=== PATIENT | female | born 1935 | race Caucasian/White ===

== ENCOUNTER 2017-01-08 13:42 | Emergency (ER) | payer MEDICARE, OTHER ==
[~2017-01-08] VITALS: Ht 165.1 cm; Wt 90.7 kg
[~2017-01-08 13:42] MED LIST: AMLO10TA2 PO; ASPI325T4 PO; CYAN1TAB19 PO; PRAV40TA2 PO
[2017-01-08] MEDS ORDERED: OXYMETAZOLINE 0.05% NASAL SPRAY 30ML BOTTLE. NS ONE (14:00)
--- NOTE | 2017-01-08 14:16 | PHYS DOC ---
Past Medical History Past Medical History: CVA, Hypertension Past Surgical History: Hip Replacement, Hysterectomy, Knee Replacement Additional Past Surgical Histo: unknown Alcohol Use: None Drug Use: None Adult General Chief Complaint Chief Complaint: NOSEBLEED HPI HPI Patient is a 81 year old female complaining of nosebleed which began about 9: 00 this morning. She has had problems with nosebleeds in the past but has not for some time now, maybe 10 years. She just can't get it to stop. She does take one full dose aspirin a day. She has had a "mini stroke". She has a CPAP machine that she wears at night, is not humidified. PCP Dr. Kaplan Review of Systems Review of Systems Constitutional: Denies fever or chills [] Eyes: Denies change in visual acuity, redness, or eye pain [] HENT: Denies nasal congestion or sore throat [] Respiratory: Denies cough or shortness of breath [] Cardiovascular: Denies chest pain GI: Denies abdominal pain, nausea, vomiting, bloody stools or diarrhea [] : Denies dysuria or hematuria [] Musculoskeletal: Denies back pain or joint pain [] Integument: Denies rash or skin lesions [] Neurologic: Denies headache, focal weakness or sensory changes [] Current Medications Current Medications Current Medications Medications (Trade) Dose Ordered Sig/Slick Start Time Stop Time Status Last Admin Dose Admin Oxymetazoline HCl (Afrin) 2 spray 1X ONCE 01/08/17 14:00 01/08/17 14:01 DC 01/08/17 14:04 2 SPRAY Allergies Allergies Allergies Coded Allergies Type Severity Reaction Last Updated Verified No Known Drug Allergies 10/02/15 No Physical Exam Physical Exam Constitutional: Well developed, well nourished, no acute distress, non-toxic appearance. Alert, mentating normally. HENT: Normocephalic, atraumatic, bilateral external ears normal, patient has a tissue stuffed up her right nostril which is bloody, this was removed and a nose clamp was placed. Eyes: conjunctiva normal, no discharge. [] Neck: Normal range of motion, no stridor. [] Cardiovascular:Heart rate regular rhythm, no murmur [] Lungs & Thorax: Bilateral breath sounds clear to auscultation [] Skin: Warm, dry, no erythema, no rash. [] Extremities: No tenderness, no cyanosis, no clubbing, ROM intact, no edema. [] Neurologic: Alert and oriented X 3, normal motor function, normal sensory function, no focal deficits noted. [] Current Patient Data Vital Signs Vital Signs Date Time Temp Pulse Resp B/P Pulse Ox O2 Delivery O2 Flow Rate FiO2 01/08/17 13:50 97.9 78 16 176/81 94 Room Air 97.9 EKG EKG [] Radiology/Procedures Radiology/Procedures Procedure: The nose was cleared by patient blowing. Afrin nasal spray was instilled in the right nostril and nose clamp was placed. After Afrin worked for 5 minutes, the nasal clamp was removed and the patient still has bleeding from the right nare. Bleeding was fairly brisk and I am not able to easily visualize the site of bleeding. I elected to place a 5.5 cm rapid Rhino. After soaking in saline, it was placed without difficulty and inflated with about 5 mL of air which the patient tolerated moderately well. She continued to have some oozing and dripping from the left nare but I don't believe she has an active site of bleeding on the left, just having some spill over from her sinuses being full. [] Course & Med Decision Making Course & Med Decision Making Pertinent Labs and Imaging studies reviewed. (See chart for details) Patient is not on a anticoagulant, only aspirin,. 81-year-old female who presents with a right-sided nosebleed, nasal balloon was placed, she will follow up with ENT. [] Dragon Disclaimer Dragon Disclaimer This electronic medical record was generated, in whole or in part, using a voice recognition dictation system. Departure Departure Impression: Primary Impression: Right-sided nosebleed Disposition: 01 HOME, SELF-CARE Condition: IMPROVED Referrals: BERTHA KAPLAN MD (PCP) Patient Instructions: Nosebleed, [id number] Additional Instructions: Leave the nasal balloon in place until you are seen by ENT specialist to get it removed. You may be more comfortable sleeping in a recliner chair. You will continue to have some bleeding from the left side and in the back of your throat because there is blood in the back of your nose and your sinuses. If your bleeding a steady stream, return to emergency. Call on Tuesday for ENT appointment. To be seen Tuesday or Tuesday. Dr. Werner [phone] If you have problems, or are not able to get ENT follow-up, return to emergency. MATT MATUTE MD Jan 08, 2017 14:16
[2017-01-08 14:50] VITALS: BP 173/61
== END 2017-01-08 14:51 | disposition home or self-care (01) ==
LOC: ER 13:42
DX: R04.0 Epistaxis (principal); I10 Essential (primary) hypertension; Z86.73 Personal history of transient ischemic attack (TIA), and cerebral infarction without residual deficits
CPT/HCPCS: 30901; 99284-25

== ENCOUNTER → 2017-02-17 | Outpatient (CLI) | payer MEDICARE, OTHER ==
--- NOTE | 2017-02-17 12:38 | KCIC ---
5 view lumbar spine dated 02/17/2017. No comparison available. CLINICAL INDICATION: Low back pain for 2 weeks. FINDINGS: AP, lateral, bilateral oblique and cone down views of lumbosacral junction obtained. There is grade 1 anterolisthesis of L3 on L4 and L4 on L5. Sagittal alignment is otherwise anatomic. Vertebral body heights are maintained. Moderate to severe disc space narrowing at L3-L4 and L4-L5 with moderate arthrosis lower lumbar apophyseal joints. Mild hypertrophic change of the superior and inferior endplates throughout. No pars defects on the oblique views. IMPRESSION: 1. No acute radiographic abnormality. 2. Moderate lower lumbar spondylosis. 3. Anterolisthesis of L3 on L4 and L4 on L5, likely degenerative. Electronically signed by: Justino Owens MD (02/17/2017 12:35 PM)
== END | disposition home or self-care (01) ==
LOC: KCIC 11:52
PROVIDERS: ATTEND Family Medicine
DX: M54.32 Sciatica, left side (principal); M43.16 Spondylolisthesis, lumbar region; M47.896 Other spondylosis, lumbar region; M48.06 Spinal stenosis, lumbar region
CPT/HCPCS: 72110

== ENCOUNTER → 2017-02-23 | Outpatient (CLI) | payer MEDICARE, OTHER ==
[~2017-02-23] MED LIST changes: -ASPI325T4 PO; +ASPI325T8 PO
--- NOTE | 2017-02-23 14:10 | KCIC ---
EXAM: Lumbar spine MRI without contrast. HISTORY: Lower back pain and sciatica. TECHNIQUE: Multiplanar, multisequence magnetic resonance imaging of the lumbar spine was performed without contrast. COMPARISON: Radiographs dated 02/17/2017. FINDINGS: There is 7 mm grade 1 anterolisthesis of L4 on L5, 4 mm grade 1 anterolisthesis of L3 on L4, 2 mm grade 1 anterolisthesis of L5 on S1,, and 1 mm grade 1 anterolisthesis of L2 on L3. There is degenerative endplate remodeling with disc space narrowing predominantly at L3-L4 and L4-L5. There is disc desiccation at these levels. There are a few vertebral body hemangiomas. No suspicious osseous lesion is seen. The conus terminates at L1-L2. At L1-L2, there is mild right greater than left facet arthropathy. There is no stenosis. At L2-L3, there is a disc bulge and endplate remodeling. There is moderate facet arthropathy. There is hypertrophy of the ligamentum flavum. There is mild left foraminal stenosis. There is mild central canal stenosis. At L3-L4, there is a broad-based posterior central left paracentral disc protrusion with 7 mm left paracentral superior extrusion superimposed on a disc bulge and endplate remodeling. There is severe facet arthropathy. There is hypertrophy of the ligamentum flavum. There is anterolisthesis. There is severe central canal stenosis. At L4-L5, there is a broad-based posterior central disc protrusion superimposed on a disc bulge and endplate line. There is severe facet arthropathy. There is hypertrophy of the ligament flavum. There is anterolisthesis. There is moderate to severe central canal stenosis. At L5-S1, there is a left foraminal to extraforaminal disc protrusion and osteophyte complex. There is mild right and moderate left facet arthropathy. There is abutment of the exiting left L5 nerve root without significant stenosis. IMPRESSION: 1. Multilevel degenerative change throughout the lumbar spine, described in detail above. This results in mild left foraminal and central canal stenosis L2-L3, severe central canal stenosis L3-L4, moderate to severe central canal L4-L5, and abutment of the exiting left L5 nerve root without significant stenosis at L5-S1. 2. Multilevel anterolisthesis, described above. Electronically signed by: Abby Wall MD (02/23/2017 2:07 PM)
== END | disposition home or self-care (01) ==
LOC: KCIC MRI 12:54
PROVIDERS: ATTEND Family Medicine
DX: M47.896 Other spondylosis, lumbar region (principal); M54.41 Lumbago with sciatica, right side; M54.42 Lumbago with sciatica, left side
CPT/HCPCS: 72148

== ENCOUNTER → 2017-03-17 | Outpatient (CLI) | payer MEDICARE, OTHER ==
[~2017-03-17] MED LIST changes: +ASPI-482 PO; +CALC600T4 PO; +IBUP-1060 PO; +IOHEXOL 180 MG/ML 10 ML VIAL. ONE; +methylPREDNISolone ACETATE 40 MG/ML VIAL. ONE; +methylPREDNISolone ACETATE 80 MG/ML VIAL. ONE
--- NOTE | 2017-03-18 02:21 | PAIN ---
DATE OF SERVICE: 03/17/2017 INITIAL CONSULTATION CHIEF COMPLAINT: Low back and bilateral lower extremity pain, right greater than left. HISTORY OF PRESENT ILLNESS: This is an 81-year-old female who presents with history of pain in the low back and bilateral lower extremities for about 2 months. 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 The patient reports that the pain began to increase at that time in her low back and bilateral lower extremities. It is not with any significant weakness but with some fatigability in the legs, more on the right side than the left, with significant pain bilaterally. The patient reports that it has gotten worse since that time. She has tried some stretching and strengthening exercises on her own, not any form of physical therapies or other treatments, but has had some stretching exercises done by herself. The patient reports it is not helping. The pain is getting worse, it is a sharp, stabbing, and shooting pain, intermittent in intensity but always present. It is again worse in the right lower extremity, mostly across the low back into the posterior gluteus, posterior hips, posterior thighs and calves. It is worse on the right with activity, standing, walking, better with sitting or lying down. It is not awakening her from sleep at night. She feels best when she is lying down supine. It does not affect her bowel or bladder control using a walker or a cane, although she has a cane with her today, using it in her left hand. The patient reports she is taking ibuprofen 800 mg, it does help by about 50% without any side effects or stomach upset. The patient reports no loss of motor function, but again significant fatigability in the lower extremities, especially on the right side. The patient reports disability rating from 0 to 10, 10 being the worst, is a 7 with family and home responsibilities, 6 with recreation, 2 with social activity, 0 with self-care and life support activities. The patient did have MRI scan of the lumbar spine, showing multilevel degenerative changes throughout the lumbar spine with the left foraminal and central canal stenosis at L2-L3, severe central canal stenosis at L3-L4, [id number] canal stenosis at L4-L5 and abutment of the exiting left L5 nerve root without significant stenosis at L5-S1. PAST MEDICAL HISTORY: Significant for hypertension, sleep apnea, arthritis, shingles. PAST SURGICAL HISTORY: Previous surgeries include tonsillectomy, hysterectomy, left total knee replacement, right total knee replacement, and left total hip replacement. CURRENT MEDICATIONS: Include ibuprofen, amlodipine, pravastatin, calcium and daily baby aspirin. ALLERGIES: The patient has no known drug allergies. FAMILY HISTORY: Significant for no major medical problems or conditions that she is aware of besides heart disease. SOCIAL HISTORY: The patient does not smoke, does not drink alcohol. 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 ALLERGIES: The patient has no known drug allergies. REVIEW OF SYSTEMS: The patient's review of systems is positive for those items mentioned in the history of present illness. All systems are reviewed and otherwise negative. It is complete, full and well documented on the patient's chart. PHYSICAL EXAMINATION: VITAL SIGNS: Today, the patient's blood pressure is 175/83, pulse is 71, respirations 18, temperature 98.2 degrees Fahrenheit. Height is 5 feet 6 inches and weight is 226 pounds. GENERAL: The patient is awake, alert, oriented, appropriate, very pleasant demeanor. HEENT: Shows normocephalic and atraumatic. Extraocular movements are intact and symmetrical. Oral cavity shows mucous membranes moist and pink. Dentition is intact. NECK: Shows anterior throat supple without palpable lymphadenopathy noted. Swallow reflex is symmetrical. CHEST: Shows normal on inspection. Breath sounds are clear to auscultation bilaterally. HEART: Shows S1 and S2 clear. ABDOMEN: Soft, obese, nontender, nondistended. No palpable organomegaly. No rebound or guarding demonstrated. BACK: Shows spine grossly in the midline. Slight exaggeration of thoracic kyphosis. Some mild flattening of the lumbar lordotic curvature. Lumbar paraspinous musculature shows some moderate tenderness with palpation bilaterally in the upper, middle and lower distribution, but symmetrical on inspection. No tenderness over the sacrum or sacroiliac regions or over the spinous processes with palpation in the musculature, is normal on muscle girth, but with some moderate tenderness to palpation mostly in the lower lumbar distribution only and diffusely without radiation. Good rotational motion is demonstrated both laterally greater than 10 degrees right and left as well as extension greater than 10 degrees, forward flexion to 45 degrees without significant pain reported. EXTREMITIES: Lower extremities show deep tendon reflexes at 1+ in the patellar and tendo calcaneus tendons. Motor exam is strong with 5/5 dorsiflexion, extension, quadriceps and hamstring flexion and equal. Peripheral pulses are 1+ posterior tibial and dorsalis pedis pulses. No peripheral edema is noted. No clubbing. No cyanosis. Lower extremities are warm and dry to touch, equal in color and appearance. Straight leg raise noted to be negative for reproduction of any radicular symptoms bilaterally. Gaenslen's and Sylvain's maneuvers are mildly tender on the right side with Sylvain's maneuver on external rotation of the hips, but nontender on the left. Again, the patient has had hip replacement on the left side. The patient is able to stand, stand on her toes without significant difficulty or loss of balance, has a slight forward-leaning gait, slightly shuffling, again using a cane in her left hand to help ambulate. IMPRESSION: 1. This is an 81-year-old female with approximately 2-month history of increasing pain in the low back and bilateral lower extremities, worse on the right than the left with radicular pain on the right side more significant. 2. MRI scan of the lumbar spine as noted. 3. Hypertension. 4. Arthritis. 5. Sleep apnea. PLAN: Options were discussed with the patient including conservative medical management, physical therapy, interventional techniques and she would like to pursue interventional techniques. We discussed a lumbar epidural steroid injection using description as well as anatomical models to describe the procedure. Risks were then discussed including but not limited to bleeding, infection, possibility of epidural hematoma, subsequent neurologic compromise, dural puncture, headaches, spinal cord and/or nerve damage, side effects of steroid medication and poor results regarding pain control. The patient understands and wishes to proceed. The patient will return to the clinic in approximately 2 weeks for followup. She was counseled as to return appointment, activity level and side effects to be aware of. DIAGNOSES: Lumbar radiculopathy with lumbar degenerative disk disease, lumbar spinal stenosis. PROCEDURE: Lumbar epidural steroid injection in translaminar approach at the L4-L5 level using C-arm fluoroscopic guidance under sterile prep and drape using local anesthetic. MEDICATION INJECTED: Depo-Medrol 120 mg plus 10 mL of preservative-free normal saline and 2 mL of Isovue for contrast. CONDITION AT DISCHARGE: Stable. The patient tolerated the procedure well, had no complications. MOE WILHELM MD DR: GABRIELLA/marcial JOB#: [id number] / [id number]
== END | disposition home or self-care (01) ==
LOC: PNCL 11:00
PROVIDERS: ATTEND Anesthesiology
DX: M51.16 Intervertebral disc disorders with radiculopathy, lumbar region (principal); M48.06 Spinal stenosis, lumbar region; M19.90 Unspecified osteoarthritis, unspecified site; I10 Essential (primary) hypertension; E78.00 Pure hypercholesterolemia, unspecified; Z90.710 Acquired absence of both cervix and uterus; Z96.653 Presence of artificial knee joint, bilateral; Z96.642 Presence of left artificial hip joint; Z82.49 Family history of ischemic heart disease and other diseases of the circulatory system
CPT/HCPCS: 62323; J1030; J1040

== ENCOUNTER → 2017-04-01 | Outpatient (CLI) | payer MEDICARE, OTHER ==
[~2017-04-01] MED LIST changes: -IOHEXOL 180 MG/ML 10 ML VIAL. ONE; +IOHEXOL 180 MG/ML 20ML VIAL. ONE
== END | disposition home or self-care (01) ==
LOC: PNCL 09:12
PROVIDERS: ATTEND Anesthesiology
DX: M51.16 Intervertebral disc disorders with radiculopathy, lumbar region (principal); M48.06 Spinal stenosis, lumbar region; E78.00 Pure hypercholesterolemia, unspecified; I10 Essential (primary) hypertension; Z87.39 Personal history of other diseases of the musculoskeletal system and connective tissue; Z96.653 Presence of artificial knee joint, bilateral; Z96.642 Presence of left artificial hip joint; Z82.49 Family history of ischemic heart disease and other diseases of the circulatory system
CPT/HCPCS: 62323; J1030; J1040

== ENCOUNTER → 2017-05-19 | Outpatient (CLI) | payer MEDICARE, OTHER ==
[~2017-05-19] MED LIST changes: +IOHEXOL 180 MG/ML 10 ML VIAL. ONE; -IOHEXOL 180 MG/ML 20ML VIAL. ONE
--- NOTE | 2017-05-19 21:04 | PAIN ---
DATE OF SERVICE: 05/19/2017 DIAGNOSES: Lumbar radiculopathy with lumbar spinal stenosis and lumbar degenerative disk disease. HISTORY OF PRESENT ILLNESS: The patient is an 81-year-old female who returns for followup status post lumbar epidural steroid injections x 2. The patient reports about 50% improvement overall, not as significant as after the first injection, which was about 90%, but she is doing better overall. The patient reports still significant pain in the low back and bilateral lower extremities, right equal to left. Essentially, the patient reports the pain is at 9 on a scale of 10 at its worst and 5 at its least. It is currently at an 8 on a scale of 10. The patient reports it stabbing, constant, shooting and sharp in the low back radiating to the posterior gluteus, posterior thighs, posterior calves, worse with activity. The patient reports she has been increasing her activity at home and on her forearms, still lifting 50-pound bags of seed and other items and staying very active, which has been increasing the pain significantly. The patient reports it does not awaken her from sleep at night, though she feels better with lying down or sitting, mostly when she is on her feet, bending, stooping and walking. The patient reports she has some balance issues, and she is quite frustrated with her level of activity as she has had to decrease it secondary to the pain. The patient reports no new motor or sensory deficits, no new bowel or bladder incontinence or other complaints. PHYSICAL EXAMINATION: VITAL SIGNS: The patient's blood pressure is 156/60, pulse 63, respirations 16, temperature is 98.4 degrees Fahrenheit. Weight is 223 pounds. GENERAL: The patient is awake, alert, oriented, appropriate, very pleasant demeanor. HEENT: Exam shows normocephalic and atraumatic. Extraocular movements are intact and symmetrical. Oral cavity, mucous membranes are moist and pink. Dentition is intact. NECK: Shows anterior throat supple without palpable lymphadenopathy noted. Swallow reflex is symmetrical. ABDOMEN: Soft, nontender, nondistended. BACK: Shows spine grossly in the midline. Slight exaggeration of thoracic kyphosis and some mild flattening of lumbar lordotic curvature. Lumbar paraspinous muscles show some moderate tenderness with palpation throughout the upper, middle and lower distribution but only diffusely without radiation. EXTREMITIES: The patient's lower extremities show deep tendon reflexes at 1+ in the patellar and tendo calcaneus tendons that are equal. Motor exam is strong with 5/5 dorsiflexion and extension and equal. Peripheral pulses are 1+ bilaterally. No edema is noted bilaterally as well. PLAN: Options were discussed with the patient and the patient's daughter who accompanies her to visit today, and we will proceed with a third in the series of lumbar epidural steroid injections today with fluoroscopic guidance. Risks were again discussed including but not limited to bleeding, infection, possibility of epidural hematoma and subsequent neurologic compromise, dural puncture, headaches, spinal cord and/or nerve damage, side effects of steroid medication and poor results regarding pain control. The patient understands and wishes to proceed. The patient will return to clinic in approximately 2 weeks for followup. She was counseled on return appointment and activity and side effects to be aware of. DIAGNOSIS: Lumbar radiculopathy with lumbar degenerative disk disease and lumbar spinal stenosis. PROCEDURE: Lumbar epidural steroid injection in translaminar approach at the L4-L5 level using C-arm fluoroscopic guidance under sterile prep and drape using local anesthetic. MEDICATION INJECTED: A total of 120 mg of Depo-Medrol plus 10 mL of preservative-free normal saline and 2 mL of Isovue for contrast. CONDITION AT DISCHARGE: Stable. The patient tolerated the procedure well and had no complications. MOE WILHELM MD DR: GABRIELLA/marcial JOB#: [id number] / [id number]
== END | disposition home or self-care (01) ==
LOC: PNCL 10:10
PROVIDERS: ATTEND Anesthesiology
DX: M51.16 Intervertebral disc disorders with radiculopathy, lumbar region (principal); M48.06 Spinal stenosis, lumbar region; E78.00 Pure hypercholesterolemia, unspecified; I10 Essential (primary) hypertension; Z87.39 Personal history of other diseases of the musculoskeletal system and connective tissue; Z96.653 Presence of artificial knee joint, bilateral; Z82.49 Family history of ischemic heart disease and other diseases of the circulatory system
CPT/HCPCS: 62323; J1030; J1040

== ENCOUNTER → 2017-06-24 | Outpatient (CLI) | payer MEDICARE, OTHER ==
[~2017-06-24] MED LIST changes: -IOHEXOL 180 MG/ML 10 ML VIAL. ONE; -methylPREDNISolone ACETATE 40 MG/ML VIAL. ONE; -methylPREDNISolone ACETATE 80 MG/ML VIAL. ONE
--- NOTE | 2017-06-24 13:47 | KCIC ---
Carotid Doppler ultrasound INDICATION: Bruit on the left.. COMPARISON: November 12, 2015. TECHNIQUE: Color, grayscale and doppler ultrasound images obtained of the carotid system bilaterally. Percent stenosis is estimated using criteria that correlates with NASCET methodology. FINDINGS: Peak systolic velocities are as follows in cm/s: Right Carotid System: Right ICA peak systolic velocity is 133, with end-diastolic velocity of 31. CCA peak systolic velocity is 93. ECA peak systolic velocity is 150. ICA/CCA ratio is 1.44. The right vertebral artery is patent with normal direction of flow. There is mild generalized atherosclerotic plaque. Left carotid system: Left CCA peak systolic velocity is 93. ICA peak systolic velocity is 103 and end-diastolic velocity 28. ECA peak systolic velocity is 264. ICA/CCA ratio is 1.1. Moderate plaque identified at the left external carotid artery with mild plaque elsewhere. Left vertebral artery is patent with normal direction of flow. IMPRESSION: 1. Slightly increased peak systolic velocity of the right internal carotid artery suggests a 50-69 percent moderate stenosis. The ICA/CCA ratio and end-diastolic velocity on the right is not elevated. 2. Elevation of left ECA peak systolic velocity, suggesting greater than 70 percent stenosis. Moderate right ECA stenosis is also suggested. Electronically signed by: Justino Ribeiro MD (06/24/2017 1:43 PM) [facility]
== END | disposition home or self-care (01) ==
LOC: KCIC US 12:23
PROVIDERS: ATTEND Family Medicine
DX: R09.89 Other specified symptoms and signs involving the circulatory and respiratory systems (principal)
CPT/HCPCS: 93880

== ENCOUNTER → 2018-03-15 | Outpatient (CLI) | payer MEDICARE, OTHER | END | disposition home or self-care (01) | LOC: KCIC MRI 15:50 | DX: M19.011 Primary osteoarthritis, right shoulder (principal); M75.111 Incomplete rotator cuff tear or rupture of right shoulder, not specified as traumatic; M25.411 Effusion, right shoulder; M94.211 Chondromalacia, right shoulder | CPT/HCPCS: 73221 ==

== ENCOUNTER → 2018-03-31 | Outpatient (CLI) | payer MEDICARE, OTHER | END | disposition home or self-care (01) | LOC: KCIC US 07:53 | DX: Z01.818 Encounter for other preprocedural examination (principal); I65.23 Occlusion and stenosis of bilateral carotid arteries; E78.00 Pure hypercholesterolemia, unspecified; E78.5 Hyperlipidemia, unspecified; K21.9 Gastro-esophageal reflux disease without esophagitis | CPT/HCPCS: 93880 ==

== ENCOUNTER → 2018-04-13 | Outpatient (CLI) | payer MEDICARE, OTHER ==
[2018-04-13] MEDS: REGADENOSON 0.4 MG/5 ML DISP.SYRIN. IV (11:00)
== END | disposition home or self-care (01) ==
LOC: NM 08:30
DX: Z01.818 Encounter for other preprocedural examination (principal); I10 Essential (primary) hypertension; E78.5 Hyperlipidemia, unspecified; E66.9 Obesity, unspecified; K21.9 Gastro-esophageal reflux disease without esophagitis
CPT/HCPCS: 78452; 93017; 93306; 96374; 96375; 96376; A9500; J2785

== ENCOUNTER → 2018-12-21 | Outpatient (CLI) | payer MEDICARE, OTHER ==
[2018-09-18 10:15] VITALS: BP 174/79
[~2018-12-21] MED LIST changes: -AMLO10TA2 PO; +AMLO10TA8 PO; +METO-239 PO; +MIRA50TA PO; +MULT1TAB52 PO; +OMEP20TA8 PO; +SULF1TAB24 PO
--- NOTE | 2018-12-21 13:42 | KCIC ---
EXAMINATION: Magnetic resonance imaging (MRI) of the lumbar spine without contrast 12/21/2018 12:30 PM HISTORY: Low back pain. TECHNIQUE: Multiplanar multi-weighted MRI of the lumbar spine was performed without intravenous contrast using the standard lumbar spine protocol. Contrast information: None administered. COMPARISON: None available. FINDINGS: There is grade 1 anterolisthesis of L3 on L4 and L4 on L5. There is moderate disc height loss at L3-L4 and L4-L5 with disc desiccation and vacuum disc phenomena. No definite spondylolysis is identified. Vertebral body heights are maintained. Marrow signal intensity is normal in all sequences with exception of an osseous hemangioma at L2. Conus medullaris terminates at L2. Distal spinal cord signal intensity is normal on all sequences. Abdominal aorta is normal in caliber. No suspicious intraperitoneal abnormality is identified. L1-L2: Mild disc bulge. Mild facet arthropathy. There is no neuroforaminal or spinal canal stenosis. L2-L3: There is mild disc bulge asymmetric to the left. Is moderate facet arthropathy with ligamentum flavum infolding. There is mild left neuroforaminal stenosis. Mild spinal canal stenosis. L3-L4: There is moderate disc bulge. There is a left central disc extrusion extending superiorly to the infra pedicle level of L3. There is severe facet arthropathy ligamentum flavum infolding. There is moderate bilateral neuroforaminal stenosis. There is moderate to severe spinal canal stenosis. There is left lateral recess stenosis. L4-L5: There is a moderate disc bulge. There is severe facet arthropathy ligamentum flavum infolding. There is moderate right and mild to moderate left neuroforaminal stenosis. There is moderate spinal canal stenosis. There is right lateral recess stenosis. L5-S1: There is a mild disc bulge. There is severe facet arthropathy. There is no significant neuroforaminal or spinal canal stenosis. IMPRESSION: Moderate to advanced degenerative changes of the lumbar spine, most prominent at L3-L4 and L4-L5 as described in detail above. Electronically signed by: Dayanna Peterson MD (12/21/2018 1:39 PM) [id number]
== END | disposition home or self-care (01) ==
LOC: KCIC MRI 12:14
PROVIDERS: ATTEND Family Medicine
DX: M47.896 Other spondylosis, lumbar region (principal); M48.061 Spinal stenosis, lumbar region without neurogenic claudication; M12.88 Other specific arthropathies, not elsewhere classified, other specified site; D18.09 Hemangioma of other sites; R29.890 Loss of height
CPT/HCPCS: 72148

== ENCOUNTER → 2019-01-12 | Outpatient (CLI) | payer MEDICARE, OTHER ==
[2018-09-18 10:15] VITALS: BP 174/79
--- NOTE | 2019-01-12 12:01 | KCIC ---
CT HEAD WO CONTRAST History: Hypertensive encephalopathy, confusion, aphasia Comparison: March 24, 2018 Technique: Noncontrast CT imaging was performed of the head. Exposure: One or more of the following individualized dose reduction techniques were utilized for this examination: 1. Automated exposure control 2. Adjustment of the mA and/or kV according to patient size 3. Use of iterative reconstruction technique. Findings: Ventricular size is stable, within normal limits. There is no new intra-axial mass effect or midline shift. There is no evidence of acute intracranial hemorrhage. There is again scattered ill-defined low-density of the supratentorial parenchyma bilaterally not convincingly changed. There are again foci of nonspecific extra-axial calcification in the left frontal and parietal region as seen previously. Impression: 1. There is no evidence of acute intracranial hemorrhage. There is again multifocal scattered ill-defined low-density of the supratentorial parenchyma bilaterally, nonspecific findings probably due to chronic ischemic disease in a patient this age and given history of hypertension. Electronically signed by: Ari Kim MD (01/12/2019 11:59 AM) [email or web address]
== END | disposition home or self-care (01) ==
LOC: KCIC CT 10:19
PROVIDERS: ATTEND Family Medicine
DX: I67.4 Hypertensive encephalopathy (principal); I10 Essential (primary) hypertension
CPT/HCPCS: 70450

== ENCOUNTER → 2019-01-16 | Outpatient (CLI) | payer MEDICARE, OTHER ==
[2018-09-18 10:15] VITALS: BP 174/79
--- NOTE | 2019-01-16 16:14 | KCIC ---
3 views of the lumbar spine compared to similar study dated December 21, 2018 for spondylolisthesis, chronic low back pain worse on the right side, no known injury. FINDINGS: In the neutral position, there is grade 1 anterolisthesis of L3 on L4 and grade 1 anterolisthesis of L4-L5, with severe narrowing of intervertebral disc spaces at these levels resulting in vacuum phenomenon. Moderate narrowing at L5-S1. Facet arthrosis at all lower lumbar levels. With flexion and extension, there is no significant change in alignment. IMPRESSION: 1. Degenerative changes lumbar spine as described with grade 1 anterolisthesis of L3 on L4 and L4 on L5. Findings are stable with flexion and extension. Electronically signed by: Khris Turner MD (01/16/2019 4:11 PM) [id number]
== END | disposition home or self-care (01) ==
LOC: KCIC 11:55
PROVIDERS: ATTEND Neurological Surgery
DX: M47.816 Spondylosis without myelopathy or radiculopathy, lumbar region (principal); M48.07 Spinal stenosis, lumbosacral region; M43.16 Spondylolisthesis, lumbar region; M12.88 Other specific arthropathies, not elsewhere classified, other specified site
CPT/HCPCS: 72100

== ENCOUNTER → 2019-01-24 | Outpatient (CLI) | payer MEDICARE, OTHER ==
[2018-09-18 10:15] VITALS: BP 174/79
--- NOTE | 2019-01-25 02:19 | PAIN ---
DATE OF SERVICE: 01/24/2019 PROGRESS NOTE FOR PAIN CLINIC DIAGNOSES: Lumbar radiculopathy with lumbar degenerative disk disease, spinal stenosis and spondylosis. HISTORY OF PRESENT ILLNESS: The patient is an 83-year-old female who returns for followup. Last seen in April 2017. The patient had lumbar epidural steroid injections x 2 with about 90% improvement, but only for a few weeks. The pain returned in the low back and the left lower extremity. The patient has recently seen her neurosurgeon, Dr. Emil Weems who is not recommending any surgery at this time and is recommending conservative treatments. The patient reports the pain is in the low back, across the low back bilaterally and into the left posterior gluteus, posterior thigh, posterior calf with burning, stinging, tingling, sharp pain, stabbing and shooting as well in the left leg, but not the right. The patient reports it is worse with walking, standing, changing positions. The patient reports pain is a 7-8 on a scale of 10 at its worst, 7 on average, 5 at its least and is a 7 today. The patient reports it awakens her from sleep very rarely. She generally does much better with sitting or lying down. The main pain is when she is walking and standing, changing positions. The patient reports no loss of function of bowel or bladder incontinence. The patient did have a recent MRI scan, which was reviewed with her and her daughter. PHYSICAL EXAMINATION: VITAL SIGNS: Today, the patient's blood pressure is 116/56, pulse 60, respirations 18, temperature is 98.3 degrees Fahrenheit. Height is 5 feet 6 inches, weight is 220 pounds. GENERAL: The patient is awake, alert, oriented, appropriate, very pleasant demeanor. HEENT: Head shows normocephalic, atraumatic. Extraocular movements intact and symmetrical. Oral cavity, mucous membranes moist and pink. Dentition is intact. NECK: Shows anterior throat supple without palpable lymphadenopathy noted. Swallow reflex symmetrical. CHEST: Shows normal on inspection. Breath sounds clear to auscultation bilaterally. HEART: Shows S1, S2 clear. No murmurs auscultated. ABDOMEN: Soft, nontender, nondistended. No palpable organomegaly is noted. No rebound or guarding demonstrated. BACK: Shows spine grossly in the midline. Normal appearing thoracic kyphosis, slight flattening of the lumbar lordotic curvature. Lumbar paraspinous muscle shows symmetrical on inspection, on palpation shows some moderate tenderness diffusely without significant atrophy, hypertrophy or radiation of pain. EXTREMITIES: The patient's lower extremities show deep tendon reflexes at 1+ patellar and tendo calcaneus tendons are equal. Motor exam is strong with 5/5 dorsiflexion and extension, quadriceps and hamstring flexion symmetrical. Peripheral pulses are 1+ posterior tibial. No peripheral edema is noted. The patient is able to stand, stand on her toes without difficulty or loss of balance. Walks with a slight shuffling gait. Does not appear to favor the left lower extremity significantly and not using any assistive devices for short distance in the office today. IMPRESSION: 1. This is an 83-year-old female with increasing pain over the past 2 years, low back and left lower extremity in a radicular fashion. 2. MRI scan of lumbar spine showed degenerative changes with grade 1 anterolisthesis of L3 on L4 and L4 on L5, stable with flexion and extension, moderate disk bulge at L4-L5 with moderate right and mild to moderate left neural foraminal stenosis, moderate advanced degenerative change of the lumbar spine, most prominent at L3-L4, L4-L5. PLAN: Options were discussed with the patient and the patient's daughter who accompanied her to her visit today. We will preauthorize the patient for a temporary spinal cord stimulator trial, also with a psychiatric evaluation pending and insurance preauthorization pending. The patient was given instruction as well as side effects to be aware of. We discussed the procedure in detail and she was given some informative information to review on her own as well and we will set her scheduled for a temporary spinal cord stimulator trial. The patient is waiting to hear from her food and nutrition services assistant regarding a recent Holter monitor that she underwent about 3 days ago and we will wait for the results of that as well. The patient will follow up after psychiatric evaluation and we will proceed from there. MOE WILHELM MD DR: GABRIELLA/marcial JOB#: [id number] / [id number]
== END | disposition home or self-care (01) ==
LOC: PNCL 13:37
PROVIDERS: ATTEND Anesthesiology
DX: M51.16 Intervertebral disc disorders with radiculopathy, lumbar region (principal); M48.061 Spinal stenosis, lumbar region without neurogenic claudication; M47.816 Spondylosis without myelopathy or radiculopathy, lumbar region
CPT/HCPCS: G0463

== ENCOUNTER → 2019-02-22 | Outpatient (CLI) | payer MEDICARE, OTHER ==
[2018-09-18 10:15] VITALS: BP 174/79
[~2019-02-22] MED LIST changes: +LIDOCAINE 1% PF 2 ML VIAL. ONE
--- NOTE | 2019-02-23 06:53 | PAIN ---
DATE OF SERVICE: 02/22/2019 DIAGNOSES: Lumbar radiculopathy with lumbar spinal stenosis, lumbar degenerative disk disease and lumbar spondylosis. HISTORY OF PRESENT ILLNESS: The patient is an 83-year-old female who returns for followup status post lumbar epidural steroid injections and then recent approval for spinal cord stimulator temporary lead placement for trial. The patient would like to proceed with this, has had preauthorization with her insurance provider as well as clearance from psychology as a good candidate for spinal procedures and implantation of devices. The patient reports still significant pain in the low back, left lower extremity as it was previously, rated a 7 on a scale of 10 at all times, average, worst and least, is a burning, stabbing pain, aching and searing pain in the left lower leg, anterior lateral and posterior thigh. The patient reports it is worse with walking, standing, changing positions, better with sitting or lying down, does not awaken her from sleep at night. The patient has had evaluation with her neurosurgeon who is recommending no surgery and spinal cord stimulator as well. PHYSICAL EXAMINATION: VITAL SIGNS: Today, the patient's blood pressure is 170/78, pulse 61, respirations 18, temperature 98.2 degrees Fahrenheit, height is 5 feet 6 inches, weight is 222 pounds. GENERAL: The patient is awake, alert, oriented, appropriate, very pleasant demeanor. HEENT: Shows normocephalic, atraumatic. Extraocular movements are intact and symmetrical. Oral cavity: Mucous membranes are moist and pink. Dentition is intact. NECK: Shows anterior throat supple without palpable lymphadenopathy noted. Swallow reflex is symmetrical. CHEST: Shows normal on inspection. Breath sounds are clear to auscultation bilaterally. HEART: Shows S1, S2 clear. No murmurs auscultated. ABDOMEN: Soft, obese, nontender, nondistended. No palpable organomegaly is noted. BACK: Shows spine grossly in the midline, slight exaggeration of thoracic kyphosis and minor flattening of lumbar lordotic curvature. Lumbar paraspinous muscle shows symmetrical on inspection, on palpation shows some moderate tenderness, but only diffusely without radiation. The patient has good rotational motion of lumbar spine, both laterally as well as extension and flexion without significant difficulty. EXTREMITIES: Lower extremity deep tendon reflexes at 1+ in the patellar and tendo calcaneus tendons. Motor exam is strong with 5/5 dorsiflexion, extension, quadriceps and hamstring flexion and symmetrical. Options were discussed with the patient. The patient's old chart was reviewed as was her current medication regimen updated. Current review of systems is updated today as well. We will proceed with spinal cord stimulator temporary lead placement x 2. The procedure was discussed with both she and her daughter who accompanied her to visit today. Risks were discussed including but not limited to bleeding, infection, possibility of epidural hematoma, subsequent neurologic compromise, dural puncture, headaches, spinal cord and/or nerve damage as well as poor results regarding pain control and exposure to fluoroscopy. The patient understands and wished to proceed. The patient will return to the clinic in approximately 1 week for removal of the stimulator leads and reassessment at that time. DIAGNOSES: Lumbar radiculopathy with lumbar spinal stenosis, lumbar degenerative disk disease and lumbar spondylosis. PROCEDURE: Spinal cord stimulator lead placement x 2 under sterile prep and drape using local anesthetic. The patient in prone position using C-arm fluoroscopic guidance in both AP and lateral views, entered into the L3-L4 interspace both the midline and slightly right of midline with 14-gauge Hustead epidural needle with stylet x 2. Preservative-free normal saline loss of resistance technique was used with good loss of resistance and negative aspiration with each insertion. Spinal cord stimulator leads were then threaded under direct visualization using both AP and lateral views of the C-arm without difficulty, without resistance, with the first lead with the tip of the wire placed at the superior endplate of T8 and the second lead right paramedian approach with the superior lead of the wire at superior endplate of T9. These were confirmed to be in the lateral position with C-arm fluoroscopic views as well as in the midline with AP views. [place] were removed, stylets were removed. The wires were then sutured in place using anchoring devices and suture. Sterile bandage was then applied. Stimulation was carried out using Maged Stephens, and the patient was discharged in good and stable condition under her own power with her daughter to drive home. The patient will follow up again in 1 week as scheduled. MOE WILHELM MD DR: GABRIELLA/marcial JOB#: [id number] / [id number]
== END ==
LOC: PNCL 12:57
PROVIDERS: ATTEND Anesthesiology
DX: M51.16 Intervertebral disc disorders with radiculopathy, lumbar region (principal); M47.26 Other spondylosis with radiculopathy, lumbar region
CPT/HCPCS: 63650; C1897

== ENCOUNTER → 2019-03-01 | Outpatient (CLI) | payer MEDICARE, OTHER ==
[2018-09-18 10:15] VITALS: BP 174/79
[~2019-03-01] MED LIST changes: -LIDOCAINE 1% PF 2 ML VIAL. ONE
--- NOTE | 2019-03-02 02:49 | PAIN ---
DATE OF SERVICE: 03/01/2019 PROGRESS NOTE FOR PAIN CLINIC: DIAGNOSES: Lumbar radiculopathy with lumbar degenerative disk disease with lumbar spinal stenosis and lumbar spondylosis. HISTORY OF PRESENT ILLNESS: The patient is an 83-year-old female who returns for followup status post spinal cord stimulator temporary lead trial period x 1 week. The patient returns today reporting that the pain in her left leg is completely gone 100% improved. The patient reports she is very pleased with her progress with the trial. She is doing very well. She has increased her activities, distance walking, doing activities at home, traveling with greater ease and comfort, sleeping better at night. The patient reports she is feeling quite a bit better and is very pleased with her progress. The patient reports her pain at the worst in the last week was a 9 on a scale of 10, 9 on average, and a 3 at its least and is a 3 today. This was only the very first 2-3 days of the trial period when the pain was above 3. The patient reports her left leg pain is completely gone, still some pain in the back, but again significantly reduced and she is quite pleased with the progress. The patient reports no new motor or sensory deficits, no new bowel or bladder incontinence or other complaints. PHYSICAL EXAMINATION: VITAL SIGNS: The patient's blood pressure 189/87, pulse is 61, respirations are 16, temperature 97.6 degrees Fahrenheit. GENERAL: The patient is awake, alert, oriented, appropriate, very pleasant demeanor. The patient is accompanied by her daughter. HEENT: Head shows normocephalic, atraumatic. Extraocular movements are intact and symmetrical. Oral cavity: Mucous membranes moist and pink. NECK: Shows anterior throat supple. CHEST: Shows breath sounds clear. HEART: Shows S1, S2 clear. ABDOMEN: Soft, nontender. BACK: Shows spine grossly in the midline. The patient's bandages were taken down from the lumbar spine and under sterile prep and drape, sutures were cut on the stimulator anchoring leads, stimulator wires were removed x 2 with tips intact. Sites clean and dry, no erythema, no discoloration, no drainage, no signs of infection. The patient shows good rotational motion of lumbar spine, both laterally as well as extension and flexion without difficulty. The patient's site was sterilely bandaged after cleaning with alcohol prep. EXTREMITIES: The patient's lower extremities show deep tendon reflexes 1+ in the patellar and tendo calcaneus tendons. Motor exam is strong with 5/5 dorsiflexion and extension. Options were discussed with the patient. The patient's old chart was reviewed as her current medication regimen updated. Current review of systems updated today as well. We will make arrangements for permanent placement of the spinal cord stimulator within the next few weeks and those arrangements will be made. The patient will be returning for a followup as scheduled. MOE WILHELM MD DR: GABRIELLA/marcial JOB#: [id number] / [id number]
== END | disposition home or self-care (01) ==
LOC: PNCL 09:59
PROVIDERS: ATTEND Anesthesiology
DX: M51.16 Intervertebral disc disorders with radiculopathy, lumbar region (principal); M48.061 Spinal stenosis, lumbar region without neurogenic claudication; M47.816 Spondylosis without myelopathy or radiculopathy, lumbar region
CPT/HCPCS: G0463

== ENCOUNTER → 2020-03-26 | Outpatient (CLI) | payer MEDICARE, OTHER ==
[2018-09-18 10:15] VITALS: BP 174/79
[~2020-03-26] MED LIST changes: -CALC600T4 PO; +CALC600T5 PO; +MULT-445 PO; -MULT1TAB52 PO
--- NOTE | 2020-03-26 14:16 | KCIC ---
EXAM: CAROTID DOPPLER SONOGRAM. HISTORY: Carotid bruit, transient ischemic attack, hypertension. TECHNIQUE: Mckinley scale and color Doppler sonographic evaluation of the neck with spectral waveform analysis was performed and static images are submitted for review. FINDINGS: RIGHT: The peak systolic velocity within the common carotid artery is 142 cm/sec. The peak systolic velocity within the internal carotid artery is 114 cm/sec and the end diastolic velocity within the internal carotid artery is 30 cm/sec. The ICA/CCA ratio is 0.8. Grayscale images demonstrate no grayscale stenosis. LEFT: The peak systolic velocity within the common carotid artery is 88 cm/sec. The peak systolic velocity within the internal carotid artery is 91 cm/sec and the end diastolic velocity within the internal carotid artery is 24 cm/sec. The ICA/CCA ratio is 0.69. There is elevated peak systolic velocity within the left external carotid artery at 256 cm/s. Grayscale images demonstrate no grayscale stenosis. There is antegrade flow within both vertebral arteries. IMPRESSION: 1. Stenosis within the left external carotid artery may account for a carotid bruit. 2. No evidence of hemodynamically significant common or internal carotid artery stenosis. PQRS Compliance Statement - Stenosis calculations for CT, MR and conventional angiography are based upon measurement of the distal ICA diameter in accordance with the NASCET methodology. Stenosis calculations for carotid ultrasound studies are derived from validated velocity criteria which are known to correlate with the NASCET methodology. Electronically signed by: Lex Hanna MD (03/26/2020 2:13 PM) [facility]
== END | disposition home or self-care (01) ==
LOC: KCIC US 12:46
PROVIDERS: ATTEND Family Medicine
DX: I65.22 Occlusion and stenosis of left carotid artery (principal); R09.89 Other specified symptoms and signs involving the circulatory and respiratory systems
CPT/HCPCS: 93880

== ENCOUNTER → 2021-01-22 | Outpatient (CLI) | payer MEDICARE, OTHER ==
[2018-09-18 10:15] VITALS: BP 174/79
[~2021-01-22] MED LIST changes: +AMLO-187 PO; -AMLO10TA8 PO; +ASPI1TAB PO; -CALC600T5 PO; +CALC600T60 PO; +MIRA25TA PO; -MIRA50TA PO
--- NOTE | 2021-01-22 11:50 | PDOC ---
Progress Note - Pain Clinic Date of Service: DOS: DATE: 01/22/21 TIME: 11:46 Diagnosis: Dx: Lumbar radiculopathy with lumbar spinal stenosis lumbar degenerative disc disease lumbar spondylosis Left sacroiliitis History or Present Illness: HPI: 85-year-old female returns for follow-up status post spinal cord stimulator placement and has been doing well with this until the last few weeks the pain is beginning to return in the bilateral lower extremities patient reports that it is getting to be worse when she is walking standing changing positions down both the legs posteriorly and on the left hip as well posteriorly patient reports is a 10 on scale 10 is worse over the past week 9 on average 6 its least and is a 6 today patient reports much better with sitting or laying down generally is not awaken her from sleep at night she was doing much better until just a few weeks ago when the pain began without any specific injury or accident that she is aware of. Patient scribes pain is shooting cramping and stabbing in the back on and off in intensity again worse with walking standing better with sitting or lying down. Patient reports no neurologic deficits no bowel or bladder incontinence. Physical Exam: VS: Blood pressure is 169/68 pulse 66 respirations 18 temperature 90.6 F height 5 feet 6 inches weight is 214 pounds PE: PHYSICAL EXAMINATION: GENERAL: The patient is awake, alert, oriented, appropriate, very pleasant demeanor HEENT: Shows normocephalic, atraumatic. Extraocular movements are intact and symmetrical. Oral cavity: Mucous membranes moist and pink. NECK: Shows anterior throat supple without palpable lymphadenopathy noted. Swallow reflex symmetrical. CHEST: Shows normal on inspection. Breath sounds are clear bilaterally, no rales or rhonchi bilaterally. HEART: Shows S1, S2 clear. No murmurs auscultated. ABDOMEN: Soft, nontender, nondistended, obese. No palpable organomegaly is noted. No rebound or guarding demonstrated. BACK: Shows spine grossly in the midline. Normal-appearing cervical lordotic curvature. There is slightly increased thoracic kyphosis, some minor flattening of the lumbar lordotic curvature. Lumbar paraspinous muscles show symmetrical on inspection, on palpation shows some moderate tenderness diffusely throughout the upper, middle and lower distribution of the paraspinous muscles, but without specific trigger points, without radiation of pain. The patient has good rotational motion of the lumbar spine, both laterally as well as extension and flexion without significant difficulty. Mild tenderness over the right posterior superior iliac spine and significant tenderness of the left posterior superior iliac spine without radiation. EXTREMITIES: Lower extremities show deep tendon reflexes 1+ in the patellar and tendo calcaneus tendons. Motor exam is 5 on a scale of 5 with right dorsiflexion, extension, quadriceps and hamstring flexion and 5/5 on the left. Peripheral pulses are 1 posterior tibial. No peripheral edema is noted bilaterally. Lower extremities are warm and dry to touch, equal in color and appearance. SKIN: Shows warm and dry, good turgor. No edema. No sores, rashes or bruising throughout. Procedure: Procedure: Options were discussed with the patient patient's daughter who accompanied her visit today. We will have her [employer] sales representative perform adjustment on the spinal cord stimulator today. Also, discussed with she and her daughter possibility of left sacroiliac joint injection if not significantly improved over the sacroiliac region on the left side. We will see if the stimulator helps with the legs as well as the low back pain and patient will follow up in approximately 1 week with report via telephone at that time. Medication Injected: Med Injected: None Condition at Discharge: Condition at Discharge: Condition at discharge is stable. MOE WILHELM MD Jan 22, 2021 11:50
== END | disposition home or self-care (01) ==
LOC: PNCL 10:59
PROVIDERS: ATTEND Anesthesiology
DX: M51.16 Intervertebral disc disorders with radiculopathy, lumbar region (principal); M48.061 Spinal stenosis, lumbar region without neurogenic claudication; M46.1 Sacroiliitis, not elsewhere classified; I10 Essential (primary) hypertension; E78.00 Pure hypercholesterolemia, unspecified; Z79.82 Long term (current) use of aspirin; Z79.899 Other long term (current) drug therapy; Z98.890 Other specified postprocedural states; Z82.49 Family history of ischemic heart disease and other diseases of the circulatory system; Z83.3 Family history of diabetes mellitus
CPT/HCPCS: 99212; G0463

== ENCOUNTER → 2021-02-04 | Outpatient (CLI) | payer MEDICARE, OTHER ==
[2018-09-18 10:15] VITALS: BP 174/79
[~2021-02-04] MED LIST changes: +BUPIVACAINE MPF 0.25% 10 ML VIAL. ONE; +IOHEXOL 180 MG/ML 10 ML VIAL. ONE; +methylPREDNISolone ACETATE 80 MG/ML VIAL. ONE
--- NOTE | 2021-02-04 14:53 | PDOC ---
Progress Note - Pain Clinic Date of Service: DOS: DATE: 02/04/21 TIME: 14:49 Diagnosis: Dx: Lumbar radiculopathy with lumbar spinal stenosis lumbar degenerative disease and lumbar spondylosis with spinal cord stimulator Left sacroiliitis History or Present Illness: HPI: 85-year-old female returns for follow-up recently after having reprogramming of spinal cord stimulator which is working much better but still significant pain in the left posterior hip. Patient reports still has significant pain mostly with changing positions getting up from seated position sitting from standing and when she is rolling onto her left side is waking up from sleep sporadically but not every night patient reports it is in the left side occasionally some pain in the leg mostly just in the left posterior hip as it was previously patient reports is constant at times rated as an 8 on scale 10 is worse over the past week 7 on average 7 its least is a 7 today patient reported aching and dull sometimes stabbing again occasional radiation of the left leg and sometimes into the calf as well on the lateral aspect. Patient reports no new motor or sensory deficits no new bowel bladder incontinence recent stimulator adjustment has been doing well with her low back and radicular pain but not with the left posterior hip pain. Physical Exam: VS: Blood pressure is 131/66 pulse 74 respirations 16 temperature 98.4 F weight is 213 pounds PE: PHYSICAL EXAMINATION: GENERAL: The patient is awake, alert, oriented, appropriate, very pleasant demeanor HEENT: Shows normocephalic, atraumatic. Extraocular movements are intact and symmetrical. Oral cavity: Mucous membranes moist and pink. NECK: Shows anterior throat supple without palpable lymphadenopathy noted. Swal low reflex symmetrical. CHEST: Shows normal on inspection. Breath sounds are clear bilaterally. HEART: Shows S1, S2 clear. No murmurs auscultated. ABDOMEN: Soft, nontender, nondistended. No palpable organomegaly is noted. No rebound or guarding demonstrated. BACK: Shows spine grossly in the midline. Normal-appearing cervical lordotic curvature. There is slightly increased thoracic kyphosis, some minor flattening of the lumbar lordotic curvature. Lumbar paraspinous muscles show symmetrical on inspection, on palpation shows some moderate tenderness diffusely throughout the upper, middle and lower distribution of the paraspinous muscles, but without specific trigger points, without radiation of pain. The patient has good rotational motion of the lumbar spine, both laterally as well as extension and flexion without significant difficulty. Patient has moderate tenderness with palpation over the left posterior superior iliac spine and left sacroiliac joint in the superior aspect, no tenderness on the right side with palpation. EXTREMITIES: Lower extremities show deep tendon reflexes 1+ in the patellar and tendo calcaneus tendons. Motor exam is 5 on a scale of 5 with right dorsiflexion, extension, quadriceps and hamstring flexion and 5/5 on the left. Peripheral pulses are 1+ posterior tibial. No peripheral edema is noted bilaterally. Lower extremities are warm and dry to touch, equal in color and appearance. SKIN: Shows warm and dry, good turgor. No edema. No sores, rashes or bruising throughout. Procedure: Procedure: Options were discussed with patient. Patient chart was reviews her current me dication regimen updated current review of systems updated today as well. We will proceed with a left sacroiliac joint injection today with fluoroscopic guidance. Risk were discussed including but not limited to bleeding infection possibility of intravascular injection sequelae spread local anesthetic numbness side effects of steroid medication special fluoroscopy and portals rating pain control. Patient understands wished to proceed patient return to clinic in approximately 4 weeks or as necessary and like to see how she does after this injection today. Patient maintained charging parameters with her spinal cord stimulator and follow-up if any difficulties arise as well. Medication Injected: Med Injected: Under sterile prep and drape using C-arm fluoroscopic guidance, left sacroiliac joint was injected using 3 cc 0.25% bupivacaine +80 mg Depo-Medrol +2 cc contrast. Condition at discharge is stable, patient tolerated procedure well and had no complications. Condition at Discharge: Condition at Discharge: Condition at discharge stable, patient already procedure well and had no complications. MOE WILHELM MD February 04, 2021 14:53
--- NOTE | 2021-02-04 14:54 | PDOC4 ---
PROCEDURE Procedure Patient was consented for left sacroiliac joint injection with fluoroscopic guidance. Risk were discussed including but not limited to bleeding infection possibility of intravascular injection sequelae spread of local anesthetic numbness side effects of steroid medication exposure to fluoroscopy and poor results regarding pain control. Patient understands wished to proceed. Under sterile prep and drape using C-arm fluoroscopic guidance, left sacroiliac joint was injected using 3 cc 0.25% bupivacaine +80 mg Depo-Medrol +2 cc contrast. Condition at discharge is stable, patient tolerated procedure well and had no complications. MOE WILHELM MD February 04, 2021 14:54
== END | disposition home or self-care (01) ==
LOC: PNCL 13:39
PROVIDERS: ATTEND Anesthesiology
DX: M46.1 Sacroiliitis, not elsewhere classified (principal); M51.16 Intervertebral disc disorders with radiculopathy, lumbar region; M48.061 Spinal stenosis, lumbar region without neurogenic claudication; M47.26 Other spondylosis with radiculopathy, lumbar region; I10 Essential (primary) hypertension; E78.00 Pure hypercholesterolemia, unspecified; Z79.899 Other long term (current) drug therapy; Z98.890 Other specified postprocedural states; Z79.82 Long term (current) use of aspirin; Z82.49 Family history of ischemic heart disease and other diseases of the circulatory system
CPT/HCPCS: 27096; J1040; J3490; Q9965; G0260

== ENCOUNTER → 2021-04-09 | Outpatient (CLI) | payer MEDICARE, OTHER ==
[2018-09-18 10:15] VITALS: BP 174/79
[~2021-04-09] MED LIST changes: +methylPREDNISolone ACETATE 40 MG/ML VIAL. ONE
--- NOTE | 2021-04-09 12:44 | PDOC ---
Progress Note - Pain Clinic Date of Service: DOS: DATE: 04/09/21 TIME: 12:38 Diagnosis: Dx: Lumbar radiculopathy with lumbar spinal stenosis lumbar degenerative disease and lumbar spondylosis with spinal cord stimulator Bilateral sacroiliitis History or Present Illness: HPI: 85-year-old female returns for follow-up status post spinal cord stimulator placement with good results patient had made appointment to have the stimulator system looked at and reprogrammed and the enrollment representative is here to perform that today as well. Patient reports main complaint is pain in the bilateral posterior hips more on the left than the right and present bilaterally. Patient reports it is becoming more noticeable with walking standing specially getting up from a seated position or sitting for more than 20 to 30 minutes patient reports it does not radiate to the lower extremities but is in the posterior gluteus and posterior hip bilaterally again worse on the left side patient has done well with sacroiliac joint injection on the left in the past but now new finding of bilateral pain essentially as tender on the right side as the left. Patient reports no new motor or sensory deficits no new bowel or bladder incontinence patient rates her pain as a 9 on scale 10 is worse over the past week 7 on average 7 its least is a 7 today. Patient scribes pain is aching and dull and constant. Patient reports is better with laying down generally is not awaken her from sleep at night. Patient reports no other motor or sensory deficits or bowel or bladder incontinence. Physical Exam: VS: Blood pressure is 160/61 pulse 50 respirations 18 temperature is 98.6 F height 5 feet 6 inches weight is 216 pounds PE: PHYSICAL EXAMINATION: GENERAL: The patient is awake, alert, oriented, appropriate, very pleasant in demeanor, patient accompanied by her daughter. HEENT: Shows normocephalic, atraumatic. Extraocular movements are intact and symmetrical. NECK: Shows anterior throat supple without palpable lymphadenopathy noted. CHEST: Shows normal on inspection. Breath sounds are clear bilaterally. HEART: Shows S1, S2 clear. No murmurs auscultated. ABDOMEN: Soft, nontender, nondistended, obese. BACK: Shows spine grossly in the midline. Normal-appearing cervical lordotic curvature. There is slightly increased thoracic kyphosis, some minor flattening of the lumbar lordotic curvature. Lumbar paraspinous muscles show symmetrical on inspection, on palpation shows some moderate tenderness diffusely throughout the upper, middle and lower distribution of the paraspinous muscles without specific trigger points, without radiation of pain. The patient has good rotational motion of the lumbar spine, both laterally as well as extension and flexion without significant difficulty. With palpation of the sacroiliac region shows significant tenderness over the posterior superior iliac spine more on the left than the right but present bilaterally very tender bilaterally into the superior aspect of the sacroiliac region but without radiation bilaterally. EXTREMITIES: Lower extremities show deep tendon reflexes 1+ in the patellar and tendo calcaneus tendons. Motor exam is 5 on a scale of 5 with right dorsiflexion, extension, quadriceps and hamstring flexion and 5/5 on the left. Peripheral pulses are 1+ posterior tibial. No peripheral edema is noted bilaterally. Lower extremities are warm and dry. SKIN: Shows warm and dry, good turgor. No edema. No sores, rashes or bruising throughout. Procedure: Procedure: Options discussed with the patient. Patient chart reviews her current medication regimen updated current review of systems updated today as well. We will proceed with bilateral sacroiliac joint injections with fluoroscopic guidance today. Risk were discussed including but not limited to bleeding infection possibility of intravascular injection and sequelae spread of local anesthetic and numbness side effects steroid medication exposure to fluoroscopy and poor results regarding pain control. Patient understands wished to proceed. Patient return to the clinic in approximately 4 weeks or as necessary. Again patient had reprogramming of spinal cord stimulator done today as well and will follow up regarding new programs and their effectiveness. Medication Injected: Med Injected: Under sterile prep and drape using C-arm fluoroscopic guidance, bilateral sacroiliac joints were injected using 3 cc 0.25% bupivacaine +60 mg Depo-Medrol +1.5 cc contrast, after negative aspiration, each side. Condition at discharge is stable, patient tolerated procedure well and had no complications. Condition at Discharge: Condition at Discharge: Condition at discharge stable, patient alert the procedure well and had no complications. MOE WILHELM MD Apr 09, 2021 12:43
--- NOTE | 2021-04-09 12:44 | PDOC4 ---
Procedure Note: Procedure Note: Patient was consented for bilateral sacroiliac joint injections with fluoroscopic guidance. Risk were discussed including but not limited to bleeding infection possibility of intravascular injection sequelae spread local anesthetic numbness side effects steroid medication exposure to fluoroscopy and poor results regarding pain control. Patient understands wished to proceed. Under sterile prep and drape using C-arm fluoroscopic guidance, bilateral sacroiliac joints were injected using 3 cc 0.25% bupivacaine +60 mg Depo-Medrol +1.5 cc contrast, after negative aspiration, each side. Condition at discharge is stable, patient tolerated procedure well and had no complications. MOE WILHELM MD Apr 09, 2021 12:44
== END | disposition home or self-care (01) ==
LOC: PNCL 11:13
PROVIDERS: ATTEND Anesthesiology
DX: M46.1 Sacroiliitis, not elsewhere classified (principal); M51.16 Intervertebral disc disorders with radiculopathy, lumbar region; M47.26 Other spondylosis with radiculopathy, lumbar region; M48.061 Spinal stenosis, lumbar region without neurogenic claudication; I10 Essential (primary) hypertension; E78.00 Pure hypercholesterolemia, unspecified; Z79.82 Long term (current) use of aspirin; Z79.899 Other long term (current) drug therapy; Z98.890 Other specified postprocedural states
CPT/HCPCS: G0260; J1030; J1040; J3490; Q9965; 27096

== ENCOUNTER → 2021-08-18 | Outpatient (CLI) | payer MEDICARE, OTHER ==
[2018-09-18 10:15] VITALS: BP 174/79
--- NOTE | 2021-08-18 11:54 | PDOC4 ---
Procedure Note: ICD 10 Code: ICD 10 Code: M4 6.1 Procedure Note: Patient was consented for bilateral sacroiliac joint injection with fluoroscopic guidance. Including but not limited to bleeding infection possibility of intravascular injection sequelae spread local anesthetic numbness side effects steroid medication exposure fluoroscopy and portals regarding pain control. Patient understands wished to proceed. Under sterile prep and drape using C-arm fluoroscopic guidance, bilateral sacroiliac joints injected using 3 cc 0.25% bupivacaine, each +60 mg Depo- Medrol, each +1.5 cc contrast, each. Condition at discharge is stable, patient tolerated procedure well and had no complications. MOE WILHELM MD Aug 18, 2021 11:54
--- NOTE | 2021-08-18 11:54 | PDOC ---
Progress Note - Pain Clinic Date of Service: DOS: DATE: 08/18/21 TIME: 11:48 Diagnosis: Dx: Bilateral sacroiliitis Lumbar radiculopathy lumbar spinal stenosis lumbar degenerative disc disease and lumbar spondylosis History or Present Illness: HPI: 85-year-old female returns for follow-up last seen in April 09, 2021 patient had undergone bilateral sacroiliac joint injections at that time with about 75% improvement patient reports she is doing much better initially after the injections increased activity greater ease and comfort working in the yard doing all activities that she wished the pain is been returned now in the bilateral low back worse on the right than the left but present bilaterally, worse with walking standing changing positions getting up from a seated position and sitting from a standing position patient reports is waking her from sleep occasionally but not most nights patient reports the pain is in the posterior hips without any significant radiation into the lower extremities or into the low back. Patient rates her pain is a 10 on scale 10 is worse over the past week 8 on average 8 its least is an 8 today. Patient scribes as aching and constant when exacerbated. No bowel or bladder incontinence noted. Physical Exam: VS: Blood pressure is 142/85 pulse 70 respirations are 20 temperature is 98.8 F height is 5 feet 6 inches weight is 211 pounds PE: PHYSICAL EXAMINATION: GENERAL: The patient is awake, alert, oriented, appropriate, very pleasant in demeanor, patient accompanied by her daughter. HEENT: Shows normocephalic, atraumatic. Extraocular movements are intact and symmetrical. NECK: Shows anterior throat supple without palpable lymphadenopathy noted. Swallow reflex symmetrical. CHEST: Shows normal on inspection. Breath sounds are clear bilaterally, distant but no rales or rhonchi. HEART: Shows S1, S2 clear. No murmurs auscultated. ABDOMEN: Soft, nontender, nondistended, obese. No palpable organomegaly is noted. BACK: Shows spine grossly in the midline. Normal-appearing cervical lordotic curvature. There is slightly increased thoracic kyphosis, some minor flattening of the lumbar lordotic curvature. Lumbar paraspinous muscles show symmetrical on inspection, on palpation shows some moderate tenderness diffusely throughout the upper, middle and lower distribution of the paraspinous muscles, but without specific trigger points, without radiation of pain. The patient has good rotational motion of the lumbar spine, both laterally as well as extension and flexion without significant difficulty. Patient significant tenderness over the bilateral posterior superior iliac spines is more on the right than left also into the superior aspect of the sacroiliac joints but again without radiation but significantly tender to moderate palpation bilaterally. EXTREMITIES: Lower extremities show deep tendon reflexes 1+ in the patellar and tendo calcaneus tendons. Motor exam is 5 on a scale of 5 with right dorsiflexion, extension, quadriceps and hamstring flexion and 5/5 on the left. Peripheral pulses are 1+ posterior tibial. No peripheral edema is noted bilaterally. Lower extremities are warm and dry. SKIN: Shows warm and dry, good turgor. No edema. No sores, rashes or bruising throughout. Procedure: Procedure: Options were discussed with the patient patient daughter who accompanied her to visit today. We will proceed with bilateral sacroiliac joint injections today with fluoroscopic guidance. Risks were discussed including but not limited to bleeding infection possibility of intravascular injection sequelae spread of local anesthetic and numbness side effects steroid medications and poor results regarding pain control. Patient understands wished to proceed. Patient return to the clinic in approximately 4 weeks for follow-up, was counseled as to return appointment, activity level, and side effects to be aware of. Medication Injected: Med Injected: Under sterile prep and drape using C-arm fluoroscopic guidance, bilateral sacroiliac joints injected using 3 cc 0.25% bupivacaine, each +60 mg Depo- Medrol, each +1.5 cc contrast, each. Condition at discharge is stable, patient tolerated procedure well and had no complications. Condition at Discharge: Condition at Discharge: Condition at discharge stable, patient tolerated the procedure well and had no complications. MOE WILHELM MD Aug 18, 2021 11:53
== END | disposition home or self-care (01) ==
LOC: PNCL 10:48
PROVIDERS: ATTEND Anesthesiology
DX: M46.1 Sacroiliitis, not elsewhere classified (principal); M51.16 Intervertebral disc disorders with radiculopathy, lumbar region; M48.061 Spinal stenosis, lumbar region without neurogenic claudication; M47.26 Other spondylosis with radiculopathy, lumbar region; I10 Essential (primary) hypertension; E78.00 Pure hypercholesterolemia, unspecified; Z79.82 Long term (current) use of aspirin; Z79.899 Other long term (current) drug therapy; Z98.890 Other specified postprocedural states; Z82.49 Family history of ischemic heart disease and other diseases of the circulatory system
CPT/HCPCS: G0260; J1030; J1040; J3490; Q9965; 27096

== ENCOUNTER → 2022-01-14 | Outpatient (CLI) | payer MEDICARE, OTHER ==
[2018-09-18 10:15] VITALS: BP 174/79
[~2022-01-14] MED LIST changes: -BUPIVACAINE MPF 0.25% 10 ML VIAL. ONE; -IOHEXOL 180 MG/ML 10 ML VIAL. ONE; -OMEP20TA8 PO; +OMEP20TA91 PO; -methylPREDNISolone ACETATE 40 MG/ML VIAL. ONE; -methylPREDNISolone ACETATE 80 MG/ML VIAL. ONE
--- NOTE | 2022-01-14 15:43 | RAD ---
CT HEAD/BRAIN WO Date: 01/14/2022 3:20 PM Clinical Indication: memory loss Comparison: 01/12/2019. Technique: 5 mm axial tomographic images were obtained of the head without contrast. These were view ed on brain and bone windows. One or more of the following dose reduction techniques were utilized: A utomated exposure control (AEC), Adjustment of mA and/or kV according to patient size, Use of iterati ve reconstruction technique such as ASiR, CT scan done according to ALARA and image gently/image reese ly Findings: Mild generalized cerebral and cerebellar volume loss. Mild nonspecific periventricular hypoattenuatio n, most commonly seen with chronic small vessel ischemic disease. Calcified atherosclerosis of the bi lateral cavernous and paraclinoid internal carotid arteries and intracranial vertebral arteries. Stable left frontal and left parietal extra-axial calcifications. No acute hemorrhage. The ventricles are normal in size, shape, and morphology. The rosa-white matter junction is normal. The subarachnoi d cisterns are patent. The visualized paranasal sinuses are normal. The visualized portions of the orbits and globes are no rmal. The mastoid air cells are clear. The breakfast supervisor topogram shows no lytic lesion or fracture. Impression: No acute intracranial process. Mild cerebral volume loss. Mild chronic small vessel ischemic disease. Electronically signed by: Ari Patricio MD (01/14/2022 3:40 PM) [facility]
--- NOTE | 2022-01-14 17:00 | RAD ---
EXAM: Bilateral carotid duplex with waveform analysis. CLINICAL HISTORY: Reason: LEFT CAROTID BRUIT / Spl. Instructions: / History: . . TECHNIQUE: Longitudinal and transverse sonographic images of the bilateral carotid arteries was perfo rmed utilizing grayscale, color and spectral Doppler techniques. COMPARISON: 03/26/2020 FINDINGS: Mild plaque in the carotid arteries bilaterally. Vertebrals: Antegrade flow bilaterally. Right: PSV CCA (cm/s): 141 PSV ICA (cm/s): 102 EDV ICA (cm/s): 21 PSV ECA (cm/s): 176 ICA/CCA Ratio: 0.77 Left: PSV CCA (cm/s): 111 PSV ICA (cm/s): 84 EDV ICA (cm/s): 26 PSV ECA (cm/s): 307 ICA/CCA Ratio: 0.75 IMPRESSION: 1. Less than 50 percent stenosis of the internal carotid arteries bilaterally. 2. Mildly increased velocity in the distal right common carotid artery, similar to the prior exam. 3. Elevated velocities in the external carotid arteries indicating stenosis, greater in the left exte rnal carotid artery. This has mildly increased bilaterally from 2020. Consensus Panel Mckinley-scale and Doppler US Criteria for Diagnosis of ICA Stenosis Degree of Stenosis (%) ICA PSV (Cm/sec) Plaque Estimate (%)* Normal <125 None <50 <125 <50 50-69 125-230 >50 >70 but < near occlusion >230 >50 Near occlusion High, low, or undetectable Visible Total occlusion Undetectable Visible, no detectable lumen *Plaque estimate (diameter reduction) with mckinley-scale and color Doppler US Degree of Stenosis (%) ICA/CCA PSV Ratio ICA EDV (cm/sec) Normal <2.0 <40 <50 <2.0 <40 50-69 2.0-4.0 40-100 >70 but < near occlusion >4.0 >100 Near occlusion Variable Variable Total occlusion Not applicable Not applicable Electronically signed by: Marlene Perry MD (01/14/2022 4:57 PM) [id number]
== END ==
LOC: CT 14:50
PROVIDERS: ATTEND Family Medicine
DX: I65.23 Occlusion and stenosis of bilateral carotid arteries (principal); I67.82 Cerebral ischemia; R09.89 Other specified symptoms and signs involving the circulatory and respiratory systems
CPT/HCPCS: 70450; 93880

== ENCOUNTER → 2022-01-27 | Outpatient (CLI) | payer MEDICARE, OTHER ==
[2018-09-18 10:15] VITALS: BP 174/79
[~2022-01-27] MED LIST changes: +BUPIVACAINE MPF 0.25% 10 ML VIAL. ONE; +DEXAMETHASONE PRES.FREE 10 MG/ML VIAL. ONE; +IOHEXOL 180 MG/ML 10 ML VIAL. ONE
--- NOTE | 2022-01-27 12:05 | PDOC ---
Progress Note - Pain Clinic Date of Service: DOS: DATE: 01/27/22 TIME: 11:59 Diagnosis: Dx: Lumbar radiculopathy lumbar degenerative disease and lumbar spinal stenosis with lumbar spondylosis Bilateral sacroiliitis History or Present Illness: HPI: 86-year-old female returns for follow-up status post bilateral sacroiliac joint injections with about 50% improvement in the bilateral posterior hips and pelvis. Patient reports doing better but the pain returning now over the past month or so over the first several months did very well patient reports increased activity greater ease and comfort but is now beginning to get pain in the low back and the bilateral posterior hips with increasing activity as well as with standing from a seated position and changing positions patient rates her pain a 9 on scale 10 is worse over the past week 6-8 on average 3 to [place] is a 6 today. Patient reports is in the low back bilaterally posterior gluteus and thighs but without radiation to the lower extremities patient ports aching and sharp can be constant as well patient very well with spinal cord stimulator which she has implanted but does not kept it charged and encouraged her to charge that she will also contact [facility] career representative for reprogramming in the near future, once the stimulator has been recharged, she is still getting some significant pain in the low back and the bilateral lower extremities with activity. Patient reports no bowel or bladder incontinence. Physical Exam: VS: Blood pressure is 200/78 pulse 65 respirations 18 temperature 98.1 F weight-6 inches weight 210 pounds. PE: PHYSICAL EXAMINATION: GENERAL: The patient is awake, alert, oriented, appropriate, very pleasant in demeanor, patient companied by her daughter. HEENT: Shows normocephalic, atraumatic. Extraocular movements are intact and symmetrical. Oral cavity: Mucous membranes moist and pink. NECK: Shows anterior throat supple without palpable lymphadenopathy noted. Swallow reflex symmetrical. CHEST: Shows normal on inspection. Breath sounds are clear bilaterally. HEART: Shows S1, S2 clear. No murmurs auscultated. ABDOMEN: Soft, nontender, nondistended. No palpable organomegaly is noted. BACK: Shows spine grossly in the midline. Normal-appearing cervical lordotic curvature. There is moderately increased thoracic kyphosis, some flattening of the lumbar lordotic curvature with well-healed surgical scarring and easily palpable spinal cord stimulator generator. Lumbar paraspinous muscles show symmetrical on inspection, on palpation shows some moderate tenderness diffusely throughout the upper, middle and lower distribution of the paraspinous muscles without specific trigger points, without radiation of pain. The patient has good rotational motion of the lumbar spine, both laterally as well as extension and flexion without significant difficulty. Patient shows significant tendernes s over the posterior superior iliac spine worse on the left than the right but present bilaterally without specific radiation. Significant tenderness over the sacroiliac regions as well with palpation bilaterally. Patient shows significant positive compression test worse on the left than the right with compression of the iliac bone with right and left lateral position. EXTREMITIES: Lower extremities show deep tendon reflexes 1+ in the patellar and tendo calcaneus tendons. Motor exam is 5 on a scale of 5 with right dorsiflexion, extension, quadriceps and hamstring flexion and 5/5 on the left. Peripheral pulses are 1+ posterior tibial. No peripheral edema is noted bilaterally. Lower extremities are warm and dry. SKIN: Shows warm and dry, good turgor. No edema. No sores, rashes or bruising throughout. Procedure: Procedure: Options discussed with the patient. Patient's old chart was reviewed as her current medication regimen updated current review of systems updated today as well. We will proceed with a bilateral sacroiliac joint injections today with fluoroscopic guidance. Risks are discussed including but not limited to bleeding infection possibility of intravascular injection sequelae spread local anesthetic numbness side effects steroid medication exposure fluoroscopy and portals regarding pain control. Patient understands and wished to proceed. Patient return to clinic in approximately 2 weeks for follow-up, was counseled as to return appointment, activity level, and side effects to be aware of. Medication Injected: Med Injected: Under sterile prep and drape, patient in prone position, using C-arm fluoroscopic guidance, left and right sacroiliac joint was visualized, after topical anesthetic over the sacroiliac joints, using a 22-gauge quickie needle, were entered without difficulty. Stylet was removed and sacroiliac joint was injected using 3 cc 0.25% bupivacaine + 20 mg dexamethasone +2 cc contrast, each side. Condition at discharge is stable, patient tolerated procedure well and had no complications.. Condition at Discharge: Condition at Discharge: Patient condition at discharge is stable, patient tolerated the procedure well and had no complications. MOE WILHELM MD January 27, 2022 12:05
--- NOTE | 2022-01-27 12:06 | PDOC4 ---
Procedure Note: ICD 10 Code: ICD 10 Code: M4 6.1 Procedure Note: Patient was consented for bilateral sacroiliac joint injections with fluoroscopic guidance. Risk were discussed including but not limited to bleeding infection possibility of intravascular injection sequelae spread local anesthetic numbness side effects steroid medication exposure fluoroscopy and portals regarding pain control. Patient understands and wished to proceed. Under sterile prep and drape, patient in prone position, using C-arm fluoroscopic guidance, left and right sacroiliac joint was visualized, after topical anesthetic over the sacroiliac joints, using a 22-gauge quickie needle, were entered without difficulty. Stylet was removed and sacroiliac joint was injected using 3 cc 0.25% bupivacaine + 20 mg dexamethasone +2 cc contrast, each side. Condition at discharge is stable, patient tolerated procedure well and had no complications.. MOE WILHELM MD January 27, 2022 12:06
== END | disposition home or self-care (01) ==
LOC: PNCL 11:03
PROVIDERS: ATTEND Anesthesiology
DX: M46.1 Sacroiliitis, not elsewhere classified (principal); M51.16 Intervertebral disc disorders with radiculopathy, lumbar region; M48.061 Spinal stenosis, lumbar region without neurogenic claudication; M47.26 Other spondylosis with radiculopathy, lumbar region
CPT/HCPCS: G0260; J1100; J3490; Q9965; 27096

== ENCOUNTER → 2022-02-09 | Outpatient (CLI) | payer MEDICARE, OTHER ==
[2018-09-18 10:15] VITALS: BP 174/79
[~2022-02-09] MED LIST changes: -BUPIVACAINE MPF 0.25% 10 ML VIAL. ONE; -DEXAMETHASONE PRES.FREE 10 MG/ML VIAL. ONE; -IOHEXOL 180 MG/ML 10 ML VIAL. ONE
--- NOTE | 2022-02-09 13:30 | CARD ---
MR#: [id number] Date of Study: 02/09/2022 Ordering Physician: JAMIE RAMOS, Referring Physician: JAMIE RAMOS, Tech: [facility] APPROVED REPORT EXAM: Two-dimensional and M-mode echocardiogram with Doppler and color Doppler. Other Information Quality : AverageHR: 60bpm Rhythm : NSR INDICATION Syncope Murmur 2D DIMENSIONS RVDd2.3 (2.9-3.5cm)Left Atrium(2D)3.2 (1.6-4.0cm) IVSd1.4 (0.7-1.1cm)Aortic Root(2D)2.5 (2.0-3.7cm) LVDd4.5 (3.9-5.9cm)LVOT Diameter2.0 (1.8-2.4cm) PWd1.5 (0.7-1.1cm)LVDs3.2 (2.5-4.0cm) FS (%) 27.2 %SV48.1 ml LVEF(%)53.1 (>50%) Aortic Valve AoV Peak Pipe.189.2cm/Arun Peak GR.14.3mmHg LVOT Peak Pipe.86.2cm/sAVA (VMAX)1.41cm2 Mitral Valve MV E Bsqfadjy50.8cm/sMV DECEL [id number] MV A Ihtxrxdp73.7cm/sE/A Ratio0.7 Pulmonary Valve PV Peak Laohjvzi28.8cm/s Tricuspid Valve TR P. Zkvbdkdi494lz/sRAP [id number] TR Peak Gr.79ntCxUTER17vwUd Pulmonary Vein S1 Bgomrhbx62.5cm/sD2 Kaimzmnf97.9cm/s PVa [id number] LEFT VENTRICLE The left ventricle is normal size. There is mild to moderate concentric left ventricular hypertrophy. The left ventricular systolic function is normal. The Ejection Fraction is 55%. No regional wall mot ion abnormalities noted. Transmitral Doppler flow pattern is Grade I-abnormal relaxation pattern. No left ventricle thrombus noted on this study. There is no ventricular septal defect visualized. There is no left ventricular aneurysm. There is no mass noted in the left ventricle. RIGHT VENTRICLE The right ventricle is normal size. There is normal right ventricular wall thickness. The right ventr icular systolic function is normal. ATRIA The left atrium is mildly dilated. The right atrium is mildly dilated. The interatrial septum is inta ct with no evidence for an atrial septal defect or patent foramen ovale as noted on 2-D or Doppler im aging. AORTIC VALVE The aortic valve is mildly calcified. No aortic regurgitation is present. There is no aortic valvular stenosis. There is no aortic valvular vegetation. MITRAL VALVE The mitral valve leaflets are thickened. There is no evidence of mitral valve prolapse. There is no m itral valve stenosis. Doppler and Color-flow revealed mild mitral regurgitation. TRICUSPID VALVE The tricuspid valve is normal in structure and function. Doppler and Color Flow revealed mild tricusp id regurgitation. The PA pressure was estimated at 30 mmHg. There is no tricuspid valve prolapse or v egetation. There is no tricuspid valve stenosis. PULMONIC VALVE The pulmonary valve is normal in structure and function. There is no pulmonic valvular regurgitation. There is no pulmonic valvular stenosis. GREAT VESSELS The aortic root is normal in size. The ascending aorta is normal in size. The pulmonary artery is nor mal. The IVC is normal in size and collapses >50% with inspiration. PERICARDIAL EFFUSION There is no pleural effusion. There is no evidence of significant pericardial effusion. Critical Notification Critical Value: No <Conclusion> The left ventricular systolic function is normal. The Ejection Fraction is 55%. No regional wall motion abnormalities noted. Transmitral Doppler flow pattern is Grade I-abnormal relaxation pattern. Mild mitral regurgitation. Mild tricuspid regurgitation. The PA pressure was estimated at 30 mmHg. There is no evidence of significant pericardial effusion. Signed by : Jesús Gonzalez, Electronically Approved : 02/09/2022 13:29:59
== END ==
LOC: ECHO 10:49
PROVIDERS: ATTEND Internal Medicine Cardiovascular Disease
DX: I08.3 Combined rheumatic disorders of mitral, aortic and tricuspid valves (principal); R01.1 Cardiac murmur, unspecified
CPT/HCPCS: 93306; C8929